=== PATIENT | female | born 2000 | race Caucasian/White ===

== ENCOUNTER 2024-06-06 19:54 | Emergency (ER) | payer BC, SELFPAY ==
[2024-06-06 20:00] VITALS: BP 139/100
[2024-06-06 20:45] VITALS: BMI 34.3
--- NOTE | 2024-06-06 20:46 | ED.GENMED ---
History of Present Illness
General
Chief Complaint: Allergic Reaction
Source: patient
Time Seen by Provider: 06/06/24 20:40
History of Present Illness
History of Present Illness:
23-year-old female with past medical history of asthma presenting to the emergency department after she accidentally ingested recedes when this was mixed in with her ice cream as opposed to M&Ms. Patient states that when she bit into the ice cream
she realized that they were recedes and promptly spit them out but still felt as if she had tongue swelling and throat closing sensation. She reports anaphylactic reaction to peanuts. She took 75 mg of Benadryl prior to arrival to the emergency
department and states she feels significantly better at this time. She did not use her EpiPen. At time of my exam patient states that she still has a very faint sensation of discomfort in her throat but otherwise feels quite well.
Past History
Past History
ED Past Medical History: Asthma
ED Past Surgical History: None
Social History
Tobacco: Vaping
Alcohol: Occasional
Drug: None
Personal: Single
Living: with roommate ([facility])
Review of Systems
Review of Systems
All Other Systems: ROS reviewed and negative except as documented in HPI and ROS
Phy Exam
Physical Exam
Physical Exam:
GENERAL: Alert , in no apparent distress
EYE: conjunctiva clear
NECK: Supple
ENT: o/p clr, mmm. No angioedema
CARDIAC: Regular rate and rhythm
LUNGS: Clear breath sounds bilaterally, no acute respiratory distress, no wheezes/rales/rhonchi
NEUROLOGICAL: Alert and oriented
SKIN: Warm and dry, skin intact.
MUSCULOSKELETAL: well perfused.
PSYCH: Normal and appropriate interaction.
Scores
Heart Failure Risk
Heart Failure Risk Score: Not Applicable
Heart Score for Chest Pain Patients
STEMI patient?: Not applicable
Withdrawal Assessment of Alcohol
Withdrawal Assessment Completed?: Not applicable
Course
Orders/Labs/Results
Orders:
Orders
06/06/24 20:46
Famotidine [Pepcid] 20 mg PO NOW STA
Prednisone [Deltasone] 50 mg PO NOW STA
Vital Signs
Initial and Last Documented VS:
Initial Vital Signs
Temp Pulse Resp BP Pulse Ox
97.8 F 104 18 139/100 99
06/06/24 20:00 06/06/24 20:00 06/06/24 20:00 06/06/24 20:00 06/06/24 20:00
Last Documented Vital Signs
Temp Pulse Resp BP Pulse Ox
97.8 F 104 18 112/74 100
06/06/24 20:00 06/06/24 20:00 06/06/24 20:00 06/06/24 21:00 06/06/24 21:01
MDM/Problems Addressed
Differential Diagnosis Includes:
Allergic reaction, at this time patient not exhibiting any symptoms to suggest anaphylaxis, no airway compromise
MDM/Problems Addressed:
23-year-old female presenting to the ER for evaluation after accidentally eating [employer] peanut butter cups when they were mistakenly put in her ice cream. Patient notes previous allergic/anaphylactic reactions to peanuts. She took 75 mg Benadryl
and notes significant improvement following this. Will treat with additional prednisone and Pepcid. Observed patient in the ER. Disposition pending.
*Pulse Oximetry
Patient hypoxic: no
ED Attending Note
-
Portions of this chart may have been created with voice recognition software.� Occasional wrong word or��sound alike� substitutions may have occurred due to the inherent limitations of voice recognition software.
Discharge Plan
Departure
Patient Disposition: Home (Routine Discharge)
Date of Disposition: 06/06/24
Time of Disposition: 21:50
Patient with high blood pressure during this ER visit?: No
Discharge Problem:
Allergic reaction to peanut
Instructions: Peanut, tree nut, and seed allergy
Prescriptions:
New
prednisone 20 mg tablet
40 mg PO DAILY 4 Days Qty: 8 0RF
Interventions
Interventions:
*Risk Screen - Suicide Last Done: 06/06/24 20:03
*General Assessment Last Done: 06/06/24 20:03
*Neglect/Abuse Screening Last Done: 06/06/24 20:03
*ED- Fall Risk Assessment Last Done: 06/06/24 20:45
*ED COVID-19 Vaccine History Last Done: 06/06/24 20:03
ED- Cardiac Assessment Last Done: 06/06/24 20:45
ED- Pulmonary Assessment Last Done: 06/06/24 20:45
ED-Skin Assessment Last Done: 06/06/24 20:45
Discharge Date and Time
Print Language: [id number]
[2024-06-06 20:47] VITALS: BP 112/88
[2024-06-06] MEDS: PEPCID 20 MG PO (20:49)
[2024-06-06] MEDS: DELTASONE 50 MG PO (20:49)
[2024-06-06 21:00] VITALS: BP 112/74
== END 2024-06-06 22:00 | disposition home or self-care (01) ==
LOC: EMR 19:54
PROVIDERS: EMERGENCY PHYSICIAN Emergency Medicine
DX: T78.1XXA Other adverse food reactions, not elsewhere classified, initial encounter (principal); R22.0 Localized swelling, mass and lump, head; J45.909 Unspecified asthma, uncomplicated; F17.290 Nicotine dependence, other tobacco product, uncomplicated; Z88.1 Allergy status to other antibiotic agents; Z91.010 Allergy to peanuts
CPT/HCPCS: 99283

== ENCOUNTER → 2024-12-11 14:24 | Outpatient (REF) | payer BC, SELFPAY | LOC: WDC 14:24 | PROVIDERS: ATTENDING PHYSICIAN Obstetrics & Gynecology Gynecology | DX: N63.20 Unspecified lump in the left breast, unspecified quadrant (principal) | CPT/HCPCS: 76642 ==